=== PATIENT | female | born 2000 | race Caucasian/White ===

== ENCOUNTER 2022-05-12 19:56 | Emergency (ER) | payer OTHER ==
[2022-05-12] MEDS ORDERED: Lidocaine 2% PF 5 ML VIAL ONE (20:49)
[2022-05-12] MEDS ORDERED: Boostrix 0.5 ML (Tdap) VIAL (>/=7 yrs of age) ONE (21:21)
== END 2022-05-12 21:44 | disposition home or self-care (01) ==
LOC: ERS 19:56
DX: L05.01 Pilonidal cyst with abscess (principal); Z23 Encounter for immunization
CPT/HCPCS: 10080; 90471; 90715; J2001